=== PATIENT | female | born 1990 | race Caucasian/White ===

== ENCOUNTER 2019-03-13 10:45 | Inpatient (IN) | payer OTHER ==
[~2019-03-13] VITALS: Ht 172.7 cm; Wt 4.1 kg
[2019-03-29] MEDS ORDERED: IRON325 MG PO (08:27)
[2019-03-29] MEDS ORDERED: PRENATAL FORMU1 EAC2 PO (08:27)
== END 2019-03-31 14:06 | disposition home or self-care (01) | DRG 788 ==
LOC: OB/GYN 03-29 07:23 → LDR 03-29 07:23 → OB/GYN 03-29 19:38
PROVIDERS: ADMIT Obstetrics & Gynecology
PROC: 4A1HXCZ Monitoring of Products of Conception, Cardiac Rate, External Approach (ICD-10-PCS; 2019-03-29)
PROC: 3E033VJ Introduction of Other Hormone into Peripheral Vein, Percutaneous Approach (ICD-10-PCS; 2019-03-29)
PROC: 4A033R1 Measurement of Arterial Saturation, Peripheral, Percutaneous Approach (ICD-10-PCS; 2019-03-29)
PROC: 10D00Z1 Extraction of Products of Conception, Low, Open Approach (ICD-10-PCS; principal; 2019-03-29 16:00)
DX: O61.0 Failed medical induction of labor (principal); O36.63X0 Maternal care for excessive fetal growth, third trimester, not applicable or unspecified; Z3A.39 39 weeks gestation of pregnancy; Z37.0 Single live birth

== ENCOUNTER 2019-03-17 14:47 | Outpatient (CLI) | payer OTHER | END 2019-03-17 16:03 | disposition home or self-care (01) | LOC: NST 14:47 | DX: Z34.83 Encounter for supervision of other normal pregnancy, third trimester (principal) ==

== ENCOUNTER 2019-03-21 09:37 | Outpatient (CLI) | payer OTHER | END 2019-03-21 11:32 | disposition home or self-care (01) | LOC: NST 09:37 | DX: Z34.83 Encounter for supervision of other normal pregnancy, third trimester (principal) ==

== ENCOUNTER 2019-03-28 09:51 | Outpatient (CLI) | payer OTHER ==
[2019-03-29] MEDS ORDERED: PRENATAL FORMU1 EAC2 PO (08:27)
[2019-03-29] MEDS ORDERED: IRON325 MG PO (08:27)
== END 2019-03-28 10:57 | disposition home or self-care (01) ==
LOC: NST 09:51
DX: Z34.83 Encounter for supervision of other normal pregnancy, third trimester (principal)